=== PATIENT | female | born 1955 | race Two or more races ===

== ENCOUNTER 2024-06-26 10:42 | Inpatient (IN) | payer OTHER ==
[~2024-06-26] VITALS: Ht 154.9 cm; Wt 82.3 kg
[2024-06-26] VITALS (10 sets, daily range): BP systolic 131–173; BP diastolic 62–86; PULSE 52–67; RESP 15–19; TEMP 97.3–97.8; O2SAT 94–97
[~2024-06-26 10:42] MED LIST: ASPI1TAB20 PO; ATOR-47 PO; DILT-29 PO; FAMO-12 PO; HYDR50TA47 PO; ISOS20TA5 PO; LATA0.0020 EACHEYE; LEVO25TA6 PO; LOSA-534 PO; METF-370 PO; METH-1182 PO; METO-158 PO; NITR0.4S31 SL; SENN-58 PO; TRAM50TA2 PO
[2024-06-26] MEDS: IODIXANOL 320MG/ML 100ML BTL IV ONE (12:08)
[2024-06-26] MEDS: HEPARIN SODIUM (PORCINE) 5000 UNITS/ML 1ML VIAL ONE (14:19)
[2024-06-26] MEDS: ANGIOMAX 250 MG VIAL IV ONE (14:19)
[2024-06-26] MEDS: VERAPAMIL 2.5MG/ML INJ 2ML VIAL IV ONE (14:19)
[2024-06-26] MEDS: fentaNYL CITRATE 100 MCG/2 ML VL ONE (14:20)
[2024-06-26] MEDS: LIDOCAINE 2%HCL (LOCAL ANESTH.) INJ 20ML MDV ONE (14:20)
[2024-06-26] MEDS: MIDAZOLAM HCL 2MG/2ML 2ml VIAL (1mg/ml) ONE (14:20)
[2024-06-26] MEDS: SODIUM CHL 0.9% 0 ML ONE (14:20)
[2024-06-26] MEDS ORDERED: NITROGLYCERIN 0.4 MG SL TAB SL PRN (15:15)
[2024-06-26] MEDS ORDERED: MORPHINE SULFATE INJ 2 MG/ml SYRG IV PRN (15:15)
--- NOTE | 2024-06-26 15:26 | DVHOP2 ---
Operative Report - 2 Report Details Date: 06/26/24 Preop Diagnosis: CAD Postop Diagnosis: Coronary artery disease. Triple-vessel disease. Surgeon: Wanda Moraes MD Anesthesiologist: Conscious sedation Anesthesia: Mac, Local ( Conscious sedation given. I monitored the patient throughout the procedure) Consent: The patient was informed of the risks and benefits of the procedure. These include but are not limited to complications of anesthesia, postoperative infection, incomplete relief of symptoms, recurrence of symptoms, damage to blood vessels, nerves and tendons, deep venous thrombosis, pulmonary embolism and possible need for repeat surgery in the future. Complications: No complications Estimated Blood Loss: 5 cc Findings: Triple-vessel disease Indications for Surgery: Chest pain Name of Procedure Performed Left heart catheterization bilateral cine coronary angiography. Left ventriculography. Procedure Details Procedure Details: Prior local anesthesia with 2% lidocaine to the right wrist and full informed consent obtained patient was prepped and draped in usual fashion followed by placement of a six [place]ian sheath in the right radial artery through which a Bryan catheter was used for ventriculography and cannulation of RCA the left main was cannulated with a multipurpose catheter. Hemodynamics: Aortic blood pressure was 110/70 end-diastolic pressure was 15. There was no gradient across the aortic valve on pullback. Coronary anatomy: Left main is large and normal. Left anterior descending is large we will. Proximal and mid stenosis of about 85-90%. Mid distal segments are otherwise free of significant disease. The diagonals to moderate plaquing critical lesions present. The circumflex is a large vessel that divides into two septal branches. Marginals are large caliber vessels. Prior to the bifurcation there was a 90% stenosis. The RCA is a large vessel notable calcification and an eccentric lesion at its midportion. Considered to be a proximally 95%. Fractional flow reserve revealed FFR 0.71 with the Cath works program. The posterolateral branches and PDA within normal limits. Good target vessels. ventriculography in the HARRIS projection shows an EF of 65% with no significant regional wall motion abnormalities. Recommendations: Patient will under coronary bypass grafting. Attempt referral to [place] Condition Good Disposition Still a Patient Date of Service: Jun 26, 2024 Billing Provider: WANDA MORAES Sr., MD Cardiology Common Codes: [id number] INP/OBS CARE (High) Cardiology Procedure Codes: [id number] HEART CATH W/INTRA INJ, 97766-K/L HEART CATH W/BYPASS GFT WANDA MORAES Sr., MD Jun 26, 2024 15:26
[2024-06-26] MEDS: ACETAMINOPHEN 325 MG TAB PO PRN (17:29)
[2024-06-27] VITALS (8 sets, daily range): BP systolic 115–156; BP diastolic 61–89; PULSE 57–72; RESP 17–18; TEMP 97.6–98.2; O2SAT 91–98
--- NOTE | 2024-06-27 13:18 | DVHPN2 ---
Consult Progress Note Subjective Other Systems: Patient in normal sinus rhythm with depressed ST waves on director of cardiac cath lab Patient states feeling shortness of breath with ambulation. Objective vital signs Vital Sign Date Time Temp Pulse Resp B/P (MAP) Pulse Ox O2 Delivery O2 Flow Rate FiO2 06/27/24 08:35 98.1 60 17 152/79 (103) 95 98.1 06/27/24 08:00 Room Air* 0 21 Total Intake and Output 06/26/24 06/26/24 06/27/24 15:00 23:00 07:00 Intake Total 200 ml Balance 200 ml medications Current Medications Medications Dose Ordered Sig/Jonn Route Start Time Stop Time Status Last Admin Dose Admin Nitroglycerin 0.4 mg Q5MINP PRN SL 06/26/24 15:15 Morphine Sulfate 2 mg Q30M PRN IV 06/26/24 15:15 Acetaminophen 650 mg Q6HP PRN PO 06/26/24 17:15 06/26/24 17:29 650 MG Examination: GENERAL:Normal, LUNGS:Normal, CVS:Normal, NEURO:Normal Problem List/Assessment/Plan Problem List/Assessment/Plan Coronary artery disease with triple-vessel disease Hypertension Dyslipidemia Type 2 diabetes mellitus Thyroid disease Obesity Plan/recommendations (Dr. Moraes): Case discussed with . The patient underwent a coronary angiogram with left heart catheterization on 06/26/2024 which revealed an EF of 65% with triple-vessel disease. At this time, we will recommend for the patient to be transferred to higher level of care for coronary artery bypass grafting. In the meantime, continue with blood pressure control, lipid-lowering agent, and single antiplatelet therapy. Continue with close cardiac surveillance. Thank you for allowing us to care for this patient. Please call with any questions or concerns. This medical document was created using an electronic medical record system with voice recognition software and computerized dictation system. Although this document has been carefully reviewed, there might still be some phonetic and typographical errors. Occasional wrong-word or ``sound-alike substitutions may have occurred due to the inherent limitations of voice recognition software. These areas are purely typographical due to imperfections of the software programs and do not reflect any compromise in the patient's medical care. Please read the chart carefully and recognize, using context, where these substitutions have occurred. Plan discussed with: Patient Date of Service: Jun 27, 2024 Billing Provider: CINDY ESCOBEDO Common Visit Codes: [id number] INP/OBS CARE(HIGH) CINDY ESCOBEDO Jun 27, 2024 13:18
[2024-06-27] MEDS: SENNA 8.6 MG TAB PO ONE (13:31)
[2024-06-27] MEDS: LOSARTAN POTASSIUM 50 MG TAB PO ONE (13:32)
--- NOTE | 2024-06-27 15:25 | DVHHP2 ---
History of Present Illness Reason for Visit: Elective left heart catheterization History of Present Illness 69-year-old female with a known history of diabetes mellitus type 2, hypertension, dyslipidemia, hypothyroidism, previous history of chest pain in in the past, presented to the hospital as an elective procedure for left heart catheterization. Patient was found to have triple-vessel disease. Patient was will be transferred to higher level of care for Cardiothoracic surgery. Patient was currently denies any chest pain shortness of breath. Cardiovascular: CAD, HTN, hyperipidemia Endocrine: Diabetes, Hypothyroidism Family History: None ALCOHOL: none Review of Systems Review of Systems Twelve review of system were negative except mentioned above. Allergies: Coded Allergies: Amlodipine (Verified Allergy, Unknown, 06/21/24) Lisinopril (Verified Allergy, Unknown, COUGH, 06/21/24) Medications Current Medications Medications Dose Ordered Sig/Jonn Route Start Time Stop Time Status Last Admin Dose Admin Nitroglycerin 0.4 mg Q5MINP PRN SL 06/26/24 15:15 Morphine Sulfate 2 mg Q30M PRN IV 06/26/24 15:15 Acetaminophen 650 mg Q6HP PRN PO 06/26/24 17:15 06/26/24 17:29 650 MG Atorvastatin Calcium 80 mg HS PO 06/27/24 22:00 Sennosides 8.6 mg QHSP PRN PO 06/27/24 13:30 Metoprolol Tartrate 50 mg BID PO 06/27/24 22:00 Losartan Potassium 50 mg DAILY PO 06/28/24 10:00 Aspirin 81 mg DAILY PO 06/28/24 10:00 Exam Vital Signs Vital Signs Date Time Temp Pulse Resp B/P (MAP) Pulse Ox O2 Delivery O2 Flow Rate FiO2 06/27/24 13:32 156/89 06/27/24 12:35 97.9 72 17 94 97.9 06/27/24 08:00 Room Air* 0 21 Exam HEENT pupils are reactive Neck is supple CV is S1-S2 regular rate and rhythm Respiratory viral clear GI posterior bowel sound Extremity no edema [employer] no motor deficit Labs/Xrays Labs Test 06/26/24 11:37 Range/Units POC Glucose 140 H 70-106 mg/dl Assessment/Plan Assessment/Plan 69-year-old female with a known history of hypertension, dyslipidemia, diabetes mellitus type 2 non-insulin dependent, hypothyroidism, previous history of chest pain/coronary artery disease presented to the hospital as an elective procedure for left heart catheterization. 1. Coronary artery disease status post left heart catheterization shows triple-vessel disease, need Cardiothoracic surgery intervention at higher level of care 2. Diabetes mellitus type 2 3. Hypotension 4. Dyslipidemia 5. Hypothyroidism -aspirin, statin, follow up Cardiology recommendation -case management social worker consultation for higher level of care for Cardiothoracic surgery intervention for triple-vessel disease. Plan discussed with: Patient My Orders Orders - ELVIA ELMORE MD Procedure Category Date Status Time Complete Blood Count LAB 06/28/24 Verified 06:00 Basic Metabolic Panel LAB 06/28/24 Verified 06:00 Magnesium LAB 06/28/24 Verified 06:00 Hemoglobin A1c LAB 06/27/24 Verified 15:20 Date of Service: Jun 27, 2024 Billing Provider: ELVIA ELMROE MD Common Visit Codes: NOT BILLABLE ELVIA ELMORE MD Jun 27, 2024 15:25
[2024-06-27] MEDS: ATORVASTATIN 20 MG TAB PO SCH (21:51)
[2024-06-27] MEDS: SENNA 8.6 MG TAB PO PRN (21:51)
[2024-06-27] MEDS: METOPROLOL TARTRATE 50 MG TAB PO SCH (21:54)
[2024-06-28 01:00] VITALS: BP 146/64; PULSE 50; RESP 16; TEMP 98.1; O2SAT 98
[2024-06-28 05:00] VITALS: BP 147/65; PULSE 50; RESP 18; TEMP 98; O2SAT 97
[2024-06-28 05:34] LABS: Basophils # (auto) 0.1 10 ^3/uL (0-0.2); Basophils % (auto) 1.2 % (0.0-2.0); Eosinophils # (auto) 0.2 10 ^3/uL (0-0.8); Eosinophils % (auto) 3.5 % (0.0-7.0); Hematocrit 39.6 % (36.0-46.0); Hemoglobin 13.7 g/dL (12.2-16.2); Lymphocytes # (auto) 1.7 10 ^3/uL (0.4-5.4); Mean Corpuscular Hemoglobin 30.4 pg (28.0-32.0); Mean Corpuscular Hgb Conc. 34.6 g/dL (32.0-36.0); Mean Corpuscular Volume 87.8 fL (80.0-100.0); Monocytes # (auto) 0.4 10 ^3/uL (0-1.3); Monocytes % (auto) 8.8 % (0.0-12.0); Neutrophils # (auto) 2.6 10 ^3/uL (1.6-8.6); Neutrophils % (auto) 51.5 % (37.0-80.0); Platelet Count (auto) 224 10^3/uL (140-450); Red Blood Cells 4.52 10^6/uL (4.0-5.20); Red Cell Distribution Width 14.2 % (11.8-14.3)
[2024-06-28 05:53] LABS: Potassium 3.9 mmol/L (3.5-5.1); Sodium 141 mmol/L (136-145)
[2024-06-28 05:54] LABS: Anion Gap 7 (5-15); Carbon Dioxide 25 mmol/L (20-31)
[2024-06-28 05:59] LABS: BUN/Creatinine Ratio 16.7 (10.0-20.0); Blood Urea Nitrogen 12 mg/dL (9-23); Glucose 101 mg/dL (74-106); Magnesium 2.5 mg/dL (1.6-2.6)
[2024-06-28 06:07] LABS: Chloride 109 mmol/L (98-107)
[2024-06-28 06:15] LABS: Calcium 9.4 mg/dL (8.7-10.4)
[2024-06-28 08:00] VITALS: BP 168/84; PULSE 57; PULSE 64; PULSE 88; RESP 16; RESP 18; TEMP 99.7; O2SAT 98; O2SAT 99
[2024-06-28] MEDS: LOSARTAN POTASSIUM 50 MG TAB PO SCH (08:35)
[2024-06-28] MEDS: ASPirin 81 mg TAB PO SCH (08:36)
--- NOTE | 2024-06-28 10:54 | DVHPN2 ---
Consult Progress Note Subjective Other Systems: Patient still complains of shortness of breath Objective vital signs Vital Sign Date Time Temp Pulse Resp B/P (MAP) Pulse Ox O2 Delivery O2 Flow Rate FiO2 06/28/24 08:35 162/86 06/28/24 08:33 88 06/28/24 08:00 99.7 18 98 99.7 06/27/24 20:10 Room Air* 0 21 Total Intake and Output 06/27/24 06/27/24 06/28/24 15:00 23:00 07:00 Intake Total 250 ml 2100 ml 800 ml Balance 250 ml 2100 ml 800 ml medications Current Medications Medications Dose Ordered Sig/Jonn Route Start Time Stop Time Status Last Admin Dose Admin Nitroglycerin 0.4 mg Q5MINP PRN SL 06/26/24 15:15 Morphine Sulfate 2 mg Q30M PRN IV 06/26/24 15:15 Acetaminophen 650 mg Q6HP PRN PO 06/26/24 17:15 06/27/24 21:51 650 MG Atorvastatin Calcium 80 mg HS PO 06/27/24 22:00 06/27/24 21:51 80 MG Sennosides 8.6 mg QHSP PRN PO 06/27/24 13:30 06/27/24 21:51 8.6 MG Metoprolol Tartrate 50 mg BID PO 06/27/24 22:00 06/28/24 08:33 50 MG Losartan Potassium 50 mg DAILY PO 06/28/24 10:00 06/28/24 08:35 50 MG Aspirin 81 mg DAILY PO 06/28/24 10:00 06/28/24 08:36 81 MG Isosorbide Dinitrate 20 mg TID@06,12,18 PO 06/28/24 12:00 Hydralazine HCl 50 mg Q12HR PO 06/28/24 22:00 Examination: GENERAL:Normal, LUNGS:Normal, CVS:Normal, NEURO:Normal laboratory and microbiology Laboratory Tests 06/28/24 04:40 Test 06/28/24 04:40 Range/Units Serum Glucose 101 74-106 mg/dL Problem List/Assessment/Plan Problem List/Assessment/Plan Coronary artery disease with triple-vessel disease Hypertension Dyslipidemia Type 2 diabetes mellitus Thyroid disease Obesity Plan/recommendations (Dr. Moraes): Case discussed with . The patient underwent a coronary angiogram with left heart catheterization on 06/26/2024 which revealed an EF of 65% with triple-vessel disease. At this time, we will recommend for the patient to be transferred to higher level of care for coronary artery bypass grafting. In the meantime, continue with blood pressure control, lipid-lowering agent, and single antiplatelet therapy. Continue with close cardiac surveillance. Thank you for allowing us to care for this patient. Please call with any questions or concerns. This medical document was created using an electronic medical record system with voice recognition software and computerized dictation system. Although this document has been carefully reviewed, there might still be some phonetic and typographical errors. Occasional wrong-word or ``sound-alike substitutions may have occurred due to the inherent limitations of voice recognition software. These areas are purely typographical due to imperfections of the software programs and do not reflect any compromise in the patient's medical care. Please read the chart carefully and recognize, using context, where these substitutions have occurred. Plan discussed with: Patient, Daughter Date of Service: Jun 28, 2024 Billing Provider: CINDY ESCOBEDO Common Visit Codes: [id number] INP/OBS CARE(HIGH) CINDY ESCOBEDO Jun 28, 2024 10:54
[2024-06-28] MEDS: hydrALAZINE HCL 25 MG TAB PO ONE (11:19)
[2024-06-28 12:00] VITALS: BP 168/79; PULSE 61; RESP 19; TEMP 98.6; O2SAT 96
--- NOTE | 2024-06-28 13:00 | DVHDS2 ---
Discharge Summary Date of Admission Jun 26, 2024 at 15:08 Date of Discharge: Jun 27, 2024 Labs/Diagnostic Data: Laboratory Results Test 06/28/24 04:40 06/27/24 15:45 06/26/24 11:37 White Blood Count 5.0 10^3/uL (4.4-10.8) Red Blood Count 4.52 10^6/uL (4.0-5.20) Hemoglobin 13.7 g/dL (12.2-16.2) Hematocrit 39.6 % (36.0-46.0) Mean Corpuscular Volume 87.8 fL (80.0-100.0) Mean Corpuscular Hemoglobin 30.4 pg (28.0-32.0) Mean Corpuscular Hemoglobin Concent 34.6 g/dL (32.0-36.0) Red Cell Distribution Width 14.2 % (11.8-14.3) Platelet Count 224 10^3/uL (140-450) Mean Platelet Volume 9.0 fL (6.9-10.8) Neutrophils (%) (Auto) 51.5 % (37.0-80.0) Lymphocytes (%) (Auto) 35.0 % (10.0-50.0) Monocytes (%) (Auto) 8.8 % (0.0-12.0) Eosinophils (%) (Auto) 3.5 % (0.0-7.0) Basophils (%) (Auto) 1.2 % (0.0-2.0) Neutrophils # (Auto) 2.6 10 ^3/uL (1.6-8.6) Lymphocytes # (Auto) 1.7 10 ^3/uL (0.4-5.4) Monocytes # (Auto) 0.4 10 ^3/uL (0-1.3) Eosinophils # (Auto) 0.2 10 ^3/uL (0-0.8) Basophils # (Auto) 0.1 10 ^3/uL (0-0.2) Nucleated Red Blood Cells 0.0 % Sodium Level 141 mmol/L (136-145) Potassium Level 3.9 mmol/L (3.5-5.1) Chloride Level 109 mmol/L (98-107) Carbon Dioxide Level 25 mmol/L (20-31) Anion Gap 7 (5-15) Blood Urea Nitrogen 12 mg/dL (9-23) Creatinine 0.72 mg/dL (0.550-1.02) Glomerular Filtration Rate Calc 91 mL/min (>90) BUN/Creatinine Ratio 16.7 (10.0-20.0) Serum Glucose 101 mg/dL (74-106) Calcium Level 9.4 mg/dL (8.7-10.4) Magnesium Level 2.5 mg/dL (1.6-2.6) Hemoglobin A1c 5.6 % A1C (<5.7) POC Glucose 140 mg/dl (70-106) Other Laboratory Tests 06/28/24 04:40 Brief Hx & Hospital Course: 69-year-old female with a known history of hypertension, dyslipidemia, diabetes mellitus type 2 non-insulin dependent, hypothyroidism, previous history of chest pain/coronary artery disease presented to the hospital with intermittent chest pain on and off worsening for last two weeks. Patient was seen by Dr. Moraes in his office and was sent home for admission. Patient underwent left heart catheterization which shows evidence of triple-vessel disease. Patient does have known history of diabetes mellitus type 2 hypertension dyslipidemia and hypothyroidism. Patient yesterday was not accepted by Cardiothoracic surgery at [facility] as I thought it was a elective left heart catheterization.. Today we called them again with the updated history and talked to cardiothoracic surgeon who accepted with the patient. Once the bed is available patient will be transferred to higher level of care. Family at bedside including spouse as well as daughter were updated and they agreed to plan. Condition at Discharge: Stable Final Diagnosis/Problems List 69-year-old female with a known history of hypertension, dyslipidemia, diabetes mellitus type 2 non-insulin dependent, hypothyroidism, previous history of chest pain/coronary artery disease presented to the hospital with a recurrent chest pain on and off for last two weeks found to have 1. Coronary artery disease status post left heart catheterization shows triple-vessel disease, need Cardiothoracic surgery intervention at higher level of care 2. Diabetes mellitus type 2 3. Hypotension 4. Dyslipidemia 5. Hypothyroidism Discharge Disposition: Acute Care Facility SNF Discharge Will this Physician continue t: No Discharge Instruct/Medications Diet: Cardiac 2g Na,low cholest Activity: See Comment Activity comment: Patient was to be discharged to higher level of care for Cardiothoracic surgery for triple-vessel disease. Follow Up/Referral: Follow up at higher level of care for Cardiothoracic surgery Medications: As reconciled Discharge Statement: "Patient was advised to return to the ER or call 911 if any headaches, dizziness, shortness of breath, chest pain, abdominal pain, bleeding, fevers, or worsening of medical condition. Patient was counseled about treatment plan, medications, possible side effects, patientverbalized understanding. All questions were answered to the best of my ability. This discharge took greater then 30 minutes in planning, reviewing documentation, counseling the patient, and discussing with other team members." ASSESSMENT ASSESSMENT Assessment Coronary artery disease. Triple-vessel disease. Date of Service: Jun 28, 2024 Billing Provider: ELVIA ELMORE MD Common Visit Codes: NOT BILLABLE ELVIA ELMORE MD Jun 28, 2024 13:00
[2024-06-28] MEDS: ISOSORBIDE DINITRATE 10 MG TAB PO SCH (13:28)
[2024-06-28 16:00] VITALS: BP 158/81; PULSE 64; RESP 20; TEMP 98.1; O2SAT 99
[2024-06-28 19:33] VITALS: PULSE 76; RESP 16; O2SAT 99
[2024-06-28] MEDS ORDERED: hydrALAZINE HCL 25 MG TAB PO SCH (22:00)
== END 2024-06-28 20:08 | disposition short-term general hospital (02) | DRG 287 ==
LOC: CATH 10:42 → OVERFLOW 15:08 → TELE-WESTW 17:57
PROVIDERS: ADMIT Internal Medicine; ATTEND Internal Medicine
PROC: 4A023N7 Measurement of Cardiac Sampling and Pressure, Left Heart, Percutaneous Approach (ICD-10-PCS; principal; 2024-06-26)
PROC: B211YZZ Fluoroscopy of Multiple Coronary Arteries using Other Contrast (ICD-10-PCS; 2024-06-26)
PROC: B215YZZ Fluoroscopy of Left Heart using Other Contrast (ICD-10-PCS; 2024-06-26)
PROC: 4A033BC Measurement of Arterial Pressure, Coronary, Percutaneous Approach (ICD-10-PCS; 2024-06-26)
DX: I25.10 Atherosclerotic heart disease of native coronary artery without angina pectoris (principal); E11.9 Type 2 diabetes mellitus without complications; E78.5 Hyperlipidemia, unspecified; E03.9 Hypothyroidism, unspecified; I10 Essential (primary) hypertension; E66.9 Obesity, unspecified; Z88.8 Allergy status to other drugs, medicaments and biological substances; Z68.29 Body mass index [BMI] 29.0-29.9, adult; Z79.899 Other long term (current) drug therapy; Z79.84 Long term (current) use of oral hypoglycemic drugs
CPT/HCPCS: 36415; 80048; 82962; 83036; 83735; 85025; 93458; 93571; 99152; G0378; J2250; Q9967